=== PATIENT | female | born 1980 | race Two or more races ===

== ENCOUNTER → 2024-06-04 | Outpatient (CLI) | payer BC, SELFPAY ==
--- NOTE | 2024-06-04 13:01 | XR_ITS ---
Examination: Transvaginal ultrasound of the pelvis, complete Technique: Transvaginal sonographic images pelvis performed using sofia scale imaging Exam date and time: June 04, 2024 1345 hours INDICATIONS: Postmenopausal vaginal bleeding beginning 6 months ago FINDINGS: Uterus 9.1 x 4.5 x 7.0 cm Endometrial stripe 0.4 cm No uterine mass Ovaries obscured by bowel gas IMPRESSION: No uterine mass or abnormally thickened endometrial stripe.
== END | disposition home or self-care (01) ==
LOC: CDIM 12:43
PROVIDERS: PCP Specialist; Referring Provider Specialist; Visit Provider Specialist
DX: N93.9 Abnormal uterine and vaginal bleeding, unspecified (principal)
CPT/HCPCS: 76830

== ENCOUNTER → 2024-06-24 | Outpatient (CLI) | payer BC, SELFPAY ==
--- NOTE | 2024-06-24 10:00 | XR_ITS ---
Examination: Breast ultrasound complete, bilateral Date and time of exam: June 24, 2024 1024 hours INDICATIONS: Mammogram December 20, 2023 10:00 nodule 6 mm right breast, patient states left breast lump at 9:00 position 6 months, family history breast cancer bilateral breast sonography December 2023 right breast 10:00 nodule 6 mm 11:00 nodule 5 mm left breast 9:00 nodule 13 mm Technique: Real-time grayscale ultrasonographic imaging bilateral breasts, including all 4 quadrants as well as nipple retroareolar and axillary regions. Findings: Sonographic images right breast 3:00 cyst 6 x 5 mm 10:00 cyst 4 x 4 millimeter 10:00 cyst 7 x 7 mm 11:00 cyst 5 x 4 mm Axillary lymph node 3.3 cm No solid nodules Sonographic images left breast 1:00 cyst 7 x 5 mm 3:00 cyst 7 x 6 mm 3:00 nodule 5 x 6 mm, circumscribed 4:00 cyst 5 x 5 mm 6:00 cyst 7 x 7 mm 9:00 hyperechoic nodule 11 x 12 mm Axillary lymph nodes IMPRESSION: BI-RADS Category 3: Probably benign findings One additional 6 month left breast sonogram follow-up is needed to document stability of solid nodules described above
--- NOTE | 2024-06-24 11:15 | XR_ITS ---
Examination: Diagnostic digital mammography, bilateral Computer aided detection 3-D breast Tomosynthesis, bilateral Date and time of exam: June 24, 2024 1057 hours INDICATIONS: Mammogram December 17, 2023 10 mm focal asymmetry upper right breast MLO view 10 cm from the nipple, 12 mm focal asymmetry upper left breast MLO view, 7 cm from the nipple Technique: Nonmagnified MLO, CC views of the breasts to been obtained, reconstructed from 3-D Tomosynthesis images. R2 computer aided detection program utilized for evaluation of suspicious masses and/or abnormal calcifications. 3-D Tomosynthesis images obtained. Findings: The breasts are heterogeneously dense, which may obscure small masses O'clock nodule circumscribed right breast, 6 mm, likely corresponding to 10:00 cyst described on right breast sonogram today No suspicious masses left breast noted Impression: BI-RADS Category 2: Benign findings Return to yearly follow-up mammography Please see the left breast sonogram report today indicating 9:00 hyperechoic nodule likely lipoma with 6 month left breast sonogram follow-up recommended.
== END | disposition home or self-care (01) ==
PROVIDERS: PCP Specialist; Referring Provider Specialist; Visit Provider Specialist
DX: R92.323 Mammographic fibroglandular density, bilateral breasts (principal); N63.25 Unspecified lump in the left breast, overlapping quadrants; N60.01 Solitary cyst of right breast; N60.02 Solitary cyst of left breast
CPT/HCPCS: 76641; 77062; 77066; G0279

== ENCOUNTER → 2024-07-21 | Outpatient (CLI) | payer BC, SELFPAY ==
[2024-07-21 17:42] LABS: Basophils # (Auto) 0.1 Thou/mm3 (0.0-0.2); Basophils % (Auto) 1 % (0-2.5); Eosinophils # (Auto) 0.1 Thou/mm3 (0.0-0.5); Eosinophils % (Auto) 1 % (0-10); Hematocrit 42.1 % (36.0-46.0); Hemoglobin 13.6 g/dL (12.0-16.0); Immature Granulocytes % (Auto) 0 % (0-0); Immature Granulocytes Auto 0.02 Thou/mm3 (0.00-0.00); Lymphocytes # (Auto) 2.2 Thou/mm3 (1.0-4.8); Lymphocytes % (Auto) 31 % (10-50); Mean Corpuscular HGB Conc 32.3 g/dl (31.0-37.0); Mean Corpuscular Hemoglobin 27.6 pg (25.0-35.0); Mean Corpuscular Volume 85 fL (80-100); Monocytes # (Auto) 0.5 Thou/mm3 (0.0-0.8); Monocytes % (Auto) 6 % (0-12); Neutrophils # (Auto) 4.3 Thou/mm3 (1.8-7.7); Neutrophils % (Auto) 61 % (37-80); Nucleated Red Blood Cell % 0 /100 WBC (0); Platelet Count 498 Thou/mm3 (140-440); RDW Standard Deviation 41.9 fL (36.4-46.3); Red Blood Count 4.93 Miln/mm3 (4.00-5.20); White Blood Count 7.1 Thou/mm3 (3.6-11.0)
[2024-07-21 17:59] LABS: Alanine Aminotransferase 25 U/L (10-49); Albumin, Serum 5.1 gm/dL (3.5-5.0); Albumin/Globulin Ratio 2.2 (1.2-2.2); Alkaline Phosphatase 98 U/L (46-116); Anion Gap 8 (7-16); Aspartate Amino Transferase 16 U/L (0-34); BUN/Creatinine Ratio 24 Ratio (12-20); Bilirubin,Total 0.3 mg/dL (0.3-1.2); Blood Urea Nitrogen 19 mg/dL (9-23); Calcium 9.8 mg/dL (8.3-10.6); Calcium (Corrected) 9.8 mg/dL (8.5-10.1); Carbon Dioxide 29.2 mMol/L (20.0-31.0); Chloride 103 mMol/L (98-107); Creatinine (Component) 0.8 mg/dL (0.6-1.3); Free T4 (Free Thyroxine) 1.26 ng/dL (0.89-1.76); Globulin 2.3 gm/dL (2.3-3.5); Glucose 113 mg/dL (74-106); Osmolality,Calculated 282 (275-295); Potassium 3.8 mMol/L (3.4-5.1); Sodium 140 mMol/L (136-145); Thyroid Stimulating Hormone 0.62 uIU/mL (0.55-4.78); Total Protein 7.4 gm/dL (5.7-8.2); eGFR > 60 See Note
[2024-07-21 18:20] LABS: Follicle Stimulating Hormone 74.74 mIU/mL (See Note)
[2024-07-27 06:57] LABS: DHEA Sulfate* 293 mcg/dL (19-231); Luteinizing Hormone* 30.1 mIU/mL; Progesterone,LC/MS* <0.1 ng/mL; Prolactin* 6.7 ng/mL; Testosterone, Free,Dialysis 3.3 pg/mL (0.1-6.4); Testosterone, Total, Dialysis 20 ng/dL (2-45)
== END | disposition home or self-care (01) ==
LOC: COPL 16:15
PROVIDERS: PCP Specialist; Referring Provider Specialist; Visit Provider Specialist
DX: N95.0 Postmenopausal bleeding (principal)
CPT/HCPCS: 36415; 80053; 82627; 83001; 83002; 84144; 84146; 84402; 84403; 84439; 84443; 85025

== ENCOUNTER → 2024-07-22 | Outpatient (CLI) | payer BC, SELFPAY | END | disposition home or self-care (01) | LOC: SLDO 12:08 | PROVIDERS: Referring Provider Specialist; Visit Provider Specialist | DX: N95.0 Postmenopausal bleeding (principal) | CPT/HCPCS: 87077; 87086; 87186 ==

== ENCOUNTER → 2024-08-03 | Outpatient (CLI) | payer BC, SELFPAY | END | disposition home or self-care (01) | LOC: SLDO 14:25 | PROVIDERS: Referring Provider Specialist; Visit Provider Specialist | DX: Z01.89 Encounter for other specified special examinations (principal); B96.20 Unspecified Escherichia coli [E. coli] as the cause of diseases classified elsewhere | CPT/HCPCS: 87086 ==

== ENCOUNTER → 2024-08-18 | Outpatient (CLI) | payer BC, SELFPAY ==
[2024-08-19 08:39] LABS: BVAG Candida Negative (Negative); Bacterial Vaginosis Markers Negative (Negative); Candida glabrata Negative (Negative); Candida krusei PCR Negative (Negative); Trichomonas Negative (Negative)
== END | disposition home or self-care (01) ==
LOC: SLDO 14:57
PROVIDERS: Referring Provider Specialist; Visit Provider Specialist
DX: B37.89 Other sites of candidiasis (principal); N76.0 Acute vaginitis; A59.01 Trichomonal vulvovaginitis
CPT/HCPCS: 81514

== ENCOUNTER → 2024-09-10 | Outpatient (CLI) | payer BC, SELFPAY ==
[2024-09-10 16:52] LABS: Amphetamine/Methamp Scrn,U Negative (Negative); Barbiturate Screen,Urine Negative (Negative); Benzodiazepines Screen,Urine Negative (Negative); Benzoylecgonine Screen, Ur Negative (Negative); Fentanyl Screen,Urine Negative (Negative); Opiate Screen,Urine Negative (Negative); THC Screen,Urine Negative (Negative)
== END | disposition home or self-care (01) ==
LOC: SLDO 14:55
PROVIDERS: Referring Provider Specialist; Visit Provider Specialist
DX: Z79.891 Long term (current) use of opiate analgesic (principal)
CPT/HCPCS: 80307

== ENCOUNTER → 2024-11-05 | Outpatient (CLI) | payer BC, SELFPAY ==
[2024-11-05 13:16] LABS: Collection Type, Urine Clean Catch
[2024-11-05 14:08] LABS: Bilirubin,Urine Negative (Negative); Blood,Urine Negative (Negative); Clarity,Urine Clear (Clear/Hazy); Color,Urine Drk-Yellow (Lt Yel-Yel); Glucose, Urine Negative (Negative); Ketones,Urine Negative (Negative); Leukocyte Esterase,Urine Negative (Negative); Nitrite,Urine Negative (Negative); Protein,Urine Negative (Neg - Trace); RBC,Urine 10 /hpf (0-3); Specific Gravity,Urine 1.018 (1.001-1.035); Squamous Epithelial Cell,Urine 1 /hpf (0-5); Urobilinogen,Urine Negative mg/dL (0.0-1.0); WBC,Urine 6 /hpf (0-5)
== END | disposition home or self-care (01) ==
LOC: SLDO 13:10
PROVIDERS: Referring Provider Specialist; Visit Provider Specialist
DX: R30.0 Dysuria (principal)
CPT/HCPCS: 81001; 87086

== ENCOUNTER 2025-01-19 17:54 | Emergency (ER) | payer OTHER, SELFPAY ==
[2025-01-19 17:55] VITALS: BMI 41.0
--- NOTE | 2025-01-19 17:57 | XR_ITS ---
Examination: Knee, right , 3 views Technique: Knee AP, lateral, oblique 3 views Date and time of exam: January 19, 2025 1800 hours INDICATIONS: Patient fell 2 days ago with injury to the knee, knee pain. FINDINGS: Prominent osteopenia Moderate to advanced tricompartment osteoarthritis, most severe medial joint space No acute fracture Moderate knee effusion IMPRESSION: No acute fracture
--- NOTE | 2025-01-19 17:58 | PD.EDLOWEX ---
Lower Extremity Injury RME/HPI General Chief Complaint: Extremity Injury, Lower Stated Complaint: R) KNEE BUCKLED, FELL, HURT THIGH/BACK Time Seen by Provider: 01/19/25 17:57 Arrival date/time: 01/19/25 17:54 Twisting injury and fall. Here with left knee pain, has diffuse swelling and some bruising. She has no open wound. No gross deformity. She is non-weight bearing today. She has a remote history of meniscus injury of the right knee. She is followed by orthopedics and her next follow-up appointment is on the of this month. Mode of arrival: wheelchair Limitations: no limitations Related Data Home Medications ?Medication ?Instructions ?Recorded ?Confirmed montelukast 10 mg tablet 10 mg PO QDAY #0 tabs 08/03/15 04/14/21 (Singulair) vitamin B complex 1 tab PO QDAY 04/13/19 04/14/21 cyanocobalamin (vitamin B-12) 1,000 mcg PO QDAY 04/14/21 04/14/21 1,000 mcg tablet (Vitamin B-12) famotidine 40 mg tablet 40 mg PO QDAY 04/14/21 04/14/21 hydrochlorothiazide 12.5 mg capsule 12.5 mg PO QAM 04/14/21 04/14/21 omeprazole 20 mg tablet,delayed 20 mg PO QDAY 04/14/21 04/14/21 release potassium 99 mg tablet 99 mg PO QDAY 04/14/21 04/18/21 Previous Rx's ?Medication ?Instructions ?Recorded alprazolam 0.5 mg tablet (Xanax) 0.5 mg PO BID PRN anxiety #10 tabs 04/24/24 Allergies Allergy/AdvReac Type Severity Reaction Status Date / Time No Known Allergies Allergy Verified 01/19/25 17:57 Review of Systems Review of Systems Systems Reviewed: All systems reviewed, normal except as documented ED Exam General Limitations: Present no limitations General appearance: Present alert and in distress Head Head exam: Present atraumatic Eye Eye exam: Present normal appearance, PERRL and EOMI ENT ENT exam: Present normal exam, normal oropharynx and mucous membranes moist Neck Neck exam: Present normal inspection, full ROM and trachea midline Chest Chest inspection: Present normal inspection and symmetric chest wall rise Respiratory Respiratory exam: Present normal lung sounds bilaterally Cardiovascular Cardiovascular exam: Present regular rate and normal rhythm Abdominal Exam Abdominal exam: Present soft; Absent guarding Extremities Exam Extremities exam: Present other (diffuse edema, tenderness to palpation, and guarding of the right knee. She has mild tenderness at the lateral right ankle without crepitus or deformity. +1 pedal pulse present. ) Back Exam Back exam: Present normal inspection and full ROM Neurological Exam Neurological exam: Present alert and oriented X3 Psychiatric Psychiatric exam: Present normal affect and normal mood Skin Skin exam: Present warm, dry, intact and normal color Course Quality Measures none Orders Category Date Time Status Apply knee immobilizer NOW Care 01/19/25 19:28 Active Crutches .NOW Care 01/19/25 19:28 Active XR ankle comp RT min 3V Stat Exams 01/19/25 18:01 Completed XR knee RT 3V Stat Exams 01/19/25 17:57 Completed HYDROcodone*/APAP 5/325 [[place] 5/325] Med 01/19/25 17:58 Discontinued 1 tab PO X1 ONE Vital Signs Vital signs: Vital Signs Temperature 98.3 F 01/19/25 18:02 Pulse Rate 82 01/19/25 18:02 Respiratory Rate 18 01/19/25 18:02 Blood Pressure 129/90 H 01/19/25 18:02 Pulse Oximetry (%) 98 01/19/25 18:02 Oxygen Delivery Method Room Air 01/19/25 18:02 Extremity Injury, Lower MDM Narrative MDM Narrative:: Twisting injury and fall. Here with left knee pain, has diffuse swelling and some bruising. She has no open wound. No gross deformity. She is non-weight bearing today. She has a remote history of meniscus injury of the right knee. She is followed by orthopedics and her next follow-up appointment is on the of this month. Patient is nonweightbearing. She has no gross deformities. Her knee is diffusely tender. Plain films were obtained of the right knee and right ankle and are unremarkable for any acute osseous injury. Patient states she has a hinged knee brace at home but it does not fit. We will see if we can place her in a knee immobilizer. Will also provide crutches. She is advised to follow-up with her orthopedic surgeon this month as planned. Return as needed for any worsening or emergent changes. Patient data External records reviewed:: None Clinical information provided by:: patient Social determinants that could affect healthcare access:: none Patient has the following chronic illnesses:: Chronic knee pain, chronic back pain How is presenting disease/condition affected by chronic disease/condition?: exacerbated by Evaluation data The following diagnostics were reviewed and interpreted by me:: radiology exam(s) (No acute osseous injury) Lab and/or radiology exams considered but not ordered:: n/a Interpretation Summary: No acute osseous Medications / Prescriptions Medications or Prescriptions considered but not ordered:: n/a Medication administrations:: Medication Administration History Discontinued Medications Hydrocodone Bitart/Acetaminophen (Hydrocodone/Apap 5/325 Tablet) 1 tab PO X1 ONE Stop: 01/19/25 17:59 Last Admin: 01/19/25 18:08 Dose: 1 tab Documented By: KF See above Consultations Consultation(s) initiated? (list below): No Diagnosis Extremity Injury, Lower Differential Diagnosis: acute internal derangement of knee and other (Knee sprain) Most likely diagnosis given after review of the tests above:: Knee sprain Admission Indicated Admission indicated?: not indicated Admission Request Was there a request for admission?: No Disposition Plan Disposition Plan: Discharge Discharge Attestation Discharge Attestation: The patient and all family members were given an opportunity to ask questions and understood the discharge instructions. Discharge instructions specifically effects, indications for sooner follow up or return to the emergency department, and the expected course of current diagnosis. Patient condition: Stable Discharge Plan Plan Patient Disposition: HOME (Self Care) Patient condition on transfer: Stable Prescriptions/Referrals Prescriptions/Med Rec: No Action montelukast [Singulair] 10 MG tablet 10 mg PO QDAY Qty: 0 famotidine 40 mg Tablet 40 mg PO QDAY cyanocobalamin (vitamin B-12) [Vitamin B-12] 1,000 mcg Tablet 1,000 mcg PO QDAY potassium 99 mg Tablet 99 mg PO QDAY hydrochlorothiazide 12.5 mg Capsule 12.5 mg PO QAM omeprazole 20 mg Tablet,Delayed Release (Dr/Ec) 20 mg PO QDAY vitamin B complex Tablet Extended Release 1 tab PO QDAY alprazolam [Xanax] 0.5 mg tablet 0.5 mg PO BID PRN (Reason: anxiety) Qty: 10 0RF Referrals: Kelvin Byrnes MD [Primary Care Provider] - In 1 week Problem List Clinical Impression: Knee sprain Patient/Caregiver Discharge Instructions Education Materials: ED Knee Sprain Additional Instructions: - Use the provided knee brace and the crutches. - Use Tylenol and ibuprofen as needed for comfort. - Follow-up with your orthopedic surgeon as planned. - Return as needed for worsening or emergent changes. Print Language: Macedonian Stand Alone Forms: [facility] Award Info., Patient Portal Info Letter
--- NOTE | 2025-01-19 18:01 | XR_ITS ---
EXAMINATION: Ankle, right 3 views . Technique: Ankle AP, oblique, lateral 3 views Date and time of exam: January 19, 2025, 180 hours INDICATIONS: Patient fell 2 days ago with injured ankle, ankle pain. FINDINGS: No acute fracture No acute dislocation. No foreign body IMPRESSION: No acute fracture
[2025-01-19 18:02] VITALS: BP 129/90; PULSE 82; RESP 18; TEMP 36.8; O2SAT 98
[2025-01-19] MEDS: HYDROcodone/APAP 5/325 TABLET 1 TAB PO (18:08)
== END 2025-01-19 20:04 | disposition home or self-care (01) ==
PROVIDERS: Emergency Provider Emergency Medicine; PCP Orthopaedic Surgery
DX: S83.91XA Sprain of unspecified site of right knee, initial encounter (principal); S99.911A Unspecified injury of right ankle, initial encounter; X50.1XXA Overexertion from prolonged static or awkward postures, initial encounter
CPT/HCPCS: 73562; 73610; 99284; A9270

== ENCOUNTER → 2025-01-22 | Outpatient (CLI) | payer BC, SELFPAY ==
--- NOTE | 2025-01-22 14:00 | XR_ITS ---
Examination: Ultrasound soft tissue extremity left axilla TECHNIQUE: Grayscale sonographic images soft tissue left axilla Date and time: January 22, 2025 1426 hours INDICATIONS: Pain in the left axillary region after HPV and tetanus vaccines December 25, 2024 FINDINGS: No cystic or solid mass in the left axilla IMPRESSION: No cystic or solid mass in the left exam
--- NOTE | 2025-01-22 14:30 | XR_ITS ---
Examination: Ultrasound soft tissue clavicle TECHNIQUE: Grayscale sonographic images soft tissue left clavicle Date and time: January 22, 2025 1421 hours INDICATIONS: Palpable lump anterior soft tissue left clavicle note is beginning December 25, 2024 FINDINGS: Multiple lymph nodes at the area concern, the largest 15 x 8 x 11 mm IMPRESSION: Multiple lymph nodes at the area of concern, consider 3 month follow-up ultrasound soft tissue clavicle
== END | disposition home or self-care (01) ==
PROVIDERS: PCP Registered Nurse; Referring Provider Specialist; Visit Provider Specialist
DX: M79.622 Pain in left upper arm (principal); R22.2 Localized swelling, mass and lump, trunk
CPT/HCPCS: 76536; 76882

== ENCOUNTER → 2025-01-28 | Outpatient (CLI) | payer BC, SELFPAY ==
[2025-01-28 10:39] LABS: Collection Type, Urine Clean Catch
[2025-01-28 11:18] LABS: Basophils # (Auto) 0.1 Thou/mm3 (0.0-0.2); Basophils % (Auto) 1 % (0-2.5); Eosinophils # (Auto) 0.1 Thou/mm3 (0.0-0.5); Eosinophils % (Auto) 2 % (0-10); Hematocrit 37.3 % (36.0-46.0); Hemoglobin 12.4 g/dL (12.0-16.0); Immature Granulocytes Auto 0.02 Thou/mm3 (0.00-0.00); Lymphocytes # (Auto) 2.0 Thou/mm3 (1.0-4.8); Lymphocytes % (Auto) 23 % (10-50); Mean Corpuscular HGB Conc 33.2 g/dl (31.0-37.0); Mean Corpuscular Hemoglobin 28.9 pg (25.0-35.0); Mean Corpuscular Volume 87 fL (80-100); Monocytes # (Auto) 0.7 Thou/mm3 (0.0-0.8); Monocytes % (Auto) 8 % (0-12); Neutrophils # (Auto) 5.6 Thou/mm3 (1.8-7.7); Neutrophils % (Auto) 66 % (37-80); Nucleated Red Blood Cell # 0.00 Thou/mm3 (0.00-0.00); Nucleated Red Blood Cell % 0 /100 WBC (0); Platelet Count 409 Thou/mm3 (140-440); RDW Standard Deviation 44.4 fL (36.4-46.3); Red Blood Count 4.29 Miln/mm3 (4.00-5.20); White Blood Count 8.4 Thou/mm3 (3.6-11.0)
[2025-01-28 11:23] LABS: Bilirubin,Urine Negative (Negative); Blood,Urine Negative (Negative); Clarity,Urine Clear (Clear/Hazy); Color,Urine Lt-Yellow (Lt Yel-Yel); Culture Indicated,Urine Not Indicated; Glucose, Urine Negative (Negative); Ketones,Urine Negative (Negative); Leukocyte Esterase,Urine Negative (Negative); Nitrite,Urine Negative (Negative); PH,Urine 6.0 (5.0-7.0); Protein,Urine Negative (Neg - Trace); RBC,Urine 1 /hpf (0-3); Specific Gravity,Urine 1.030 (1.001-1.035); Squamous Epithelial Cell,Urine 1 /hpf (0-5); Urobilinogen,Urine Negative mg/dL (0.0-1.0); WBC,Urine 1 /hpf (0-5)
[2025-01-28 11:29] LABS: Glucose Estimated Average 117 mg/dL (80-131); Hemoglobin A1C 5.7 % Hgb (4.8-6.0)
[2025-01-28 11:31] LABS: Alanine Aminotransferase 20 U/L (10-49); Albumin, Serum 4.5 gm/dL (3.5-5.0); Albumin/Globulin Ratio 2.0 (1.2-2.2); Alkaline Phosphatase 85 U/L (46-116); Anion Gap 9 (7-16); Aspartate Amino Transferase 17 U/L (0-34); BUN/Creatinine Ratio 25 Ratio (12-20); Bilirubin,Total 0.5 mg/dL (0.3-1.2); Blood Urea Nitrogen 20 mg/dL (9-23); Calcium 9.4 mg/dL (8.3-10.6); Calcium (Corrected) 9.4 mg/dL (8.5-10.1); Carbon Dioxide 29.2 mMol/L (20.0-31.0); Cardiac Risk Estimate 4.5 RATIO (3.7-5.6); Chloride 107 mMol/L (98-107); Cholesterol 178 mg/dL (132-200); Creatinine (Component) 0.8 mg/dL (0.6-1.3); Globulin 2.2 gm/dL (2.3-3.5); Glucose 131 mg/dL (74-106); HDL Cholesterol 40 mg/dL (40-60); LDL Cholesterol,Calculated 105 mg/dL (0-130); Osmolality,Calculated 293 (275-295); Potassium 4.0 mMol/L (3.4-5.1); Sodium 145 mMol/L (136-145); Thyroid Stimulating Hormone 1.90 uIU/mL (0.55-4.78); Total Protein 6.7 gm/dL (5.7-8.2); Triglycerides 167 mg/dL (30-150); eGFR > 60 See Note
[2025-01-28 11:35] LABS: Vitamin D 25 Hydroxy Total 40.0 ng/mL (7.3-40.2)
== END | disposition home or self-care (01) ==
LOC: COPL 10:02
PROVIDERS: PCP Family Medicine; Referring Provider Registered Nurse; Visit Provider Registered Nurse
DX: R79.89 Other specified abnormal findings of blood chemistry (principal); E66.9 Obesity, unspecified; Z83.3 Family history of diabetes mellitus
CPT/HCPCS: 36415; 80053; 80061; 81001; 82306; 83036; 84443; 85025

== ENCOUNTER → 2025-04-26 | Outpatient (CLI) | payer BC, SELFPAY ==
--- NOTE | 2025-04-26 10:30 | XR_ITS ---
Examination: Breast ultrasound, unilateral, left breast Date and time of exam: April 26, 2025, 11:00 a.m. INDICATIONS: Left breast sonogram June 24, 2024 3:00 nodule 6 mm 9:00 nodule 12 mm Technique: Real-time sofia scale ultrasonographic imaging performed left breast including all 4 quadrants as well as nipple retroareolar and axillary region. Findings: 1:00 cyst 7 x 10 mm 3:00 nodule circumscribed 5 x 4 mm 6:00 cyst 13 x 9 mm IMPRESSION: BI-RADS Category 2: Benign findings
== END | disposition home or self-care (01) ==
LOC: CDIM 10:29
PROVIDERS: PCP Family Medicine; Referring Provider Registered Nurse; Visit Provider Registered Nurse
DX: N63.20 Unspecified lump in the left breast, unspecified quadrant (principal)
CPT/HCPCS: 76641